=== PATIENT | male | born 1965 | race Caucasian/White ===

== ENCOUNTER 2017-12-03 15:56 | Emergency (ER) | payer OTHER ==
[~2017-12-03] VITALS: Ht 177.8 cm; Wt 115.0 kg
[2017-12-03 15:59] VITALS: Ht 177.8 cm; Wt 115.0 kg
[2017-12-03] MEDS ORDERED: NovoLIN-R INSULIN PER UNIT CHARGE IV STA (16:16)
[2017-12-03] MEDS ORDERED: SODIUM CHLORIDE 0.9% 1000ML 2,000 ML IV STA (16:16)
[2017-12-03 16:50] LABS: BASO % 0.3 %; BASO ABS # 0.02 K/uL (0-0.2); EOS ABS # 0.26 K/uL (0-0.5); HEMATOCRIT 43.8 % (42-52); HEMOGLOBIN 15.8 g/dL (14.0-18.0); IG# 0.03 K/uL (0.00-0.02); LYMPH % 28.9 %; LYMPH ABS # 1.87 K/uL (1.2-3.4); MEAN CELL VOLUME 88.5 fL (80-100); MEAN CORPUSCULAR HEMOGLOBIN 31.9 pg (25-34); MEAN CORPUSCULAR HGB CONC 36.1 g/dl (32-36); MEAN PLATELET VOLUME 10.9 fL (7.4-10.4); MONO % 6.2 %; NEUT % 60.1 %; NEUT ABS # 3.88 K/uL (1.4-6.5); PLATELET COUNT 184 K/uL (130-400); RED CELL DISTRIBUTION WIDTH SD 41.7 fL (36.4-46.3); WHITE BLOOD COUNT 6.46 K/uL (4.8-10.8)
[2017-12-03 17:22] LABS: ALBUMIN 3.5 gm/dl (3.4-5.0); CALCIUM 8.5 mg/dl (8.5-10.1); CREATININE 1.16 mg/dl (0.60-1.40); POTASSIUM 3.9 mmol/L (3.5-5.1); TOTAL PROTEIN 7.2 gm/dl (6.4-8.2)
--- NOTE | 2017-12-03 18:31 | Pharmacy Progress Note ---
ED Pharmacist Progress Note Date of Service: Dec 03, 2017. Asked to look into patient's insurance coverage for insulin by Sean Mccullough. Talked to patient who said he had tried to get prescriptions filled at a [facility] in [facility] and was unable to get his Lantus and Novolog filled. His last known lantus dose was 10 units daily- Patient reports that he has not had had lantus in the past 10 months. His novolog was is a sliding scale for hyperglycemia only that he takes 3 times a day. Patient does not know his scale and does not have it with him but says the maximum single dose is 45 units but he often does not take that much. The novolog required a prior auth that was denied. Called the [facility] and spoke with the pharmacist who told me that the novolog did need a prior auth and that the lantus was just being rejected. Called the patient's insurance company and discussed what was covered under formulary. Lantus is no longer covered but BASAGLAR and Levemir are both covered. The insurance counsel said that novolog was covered but had a quantity limit- patient should not have exceed the limit with dose. Humalog was also covered with the same quantity limit. Talked to patient and NOEL regarding switch to Basaglar which is 1:1 with Lantus and that maybe the novolog prescription needed a max daily dose written in script to go through correctly. At request of NOEL called patient's preferred pharmacy [facility] ([facility]) and gave test prescriptions. Prescription for Basaglar Kwikpen Inject 10 units subcutaneously daily Disp 1 box went through insurance without issue. Prescription for Novolog Flexpen Inject up to 45 units SQ three times daily as directed per sliding scale disp #1 box came up as non-formulary for them. They tried the same script with Humalog Kwikpen and it was able to go through. Discussed with NOEL who was okay with switching to humalog (1:1 w/ novolog). Gave verbal prescriptions to the pharmacist per Sean Dave PA-C. Discussed changes to basaglar and humalog with patient. Encouraged follow-up with outpatient provider as I expect that this basaglar dose is too low and patient will need to increase to get better control. Patient may also require coverage for food and not just correctional insulin if blood sugars continue to uncontrolled with the addition of basaglar. Patient had also asked about anxiety medication, patient had also tried to get paroxetine script filled. When I spoke with the [facility] pharmacist she said that the paxil prescription had gone through. Patient said he moved locations and was unable to pick it up. Let him know that he should be able to have it transferred to a different [facility] if script was current.
[2017-12-03] MEDS ORDERED: NovoLIN-R INSULIN PER UNIT CHARGE ONE ×2 (19:26→19:31)
[2017-12-03 19:38] VITALS: BP 155/85; PULSE 88; TEMP 36.8; O2SAT 96
--- NOTE | 2017-12-03 23:28 | EMERGENCY ROOM VISIT NOTE ---
History First contact with patient: 16:04 Chief Complaint: HYPERGLYCEMIA Stated Complaint: DIZZINESS, BLOOD SUGAR TO HIGH Nursing Triage Summary: hyperglycemia. History of Present Illness The patient is a 52 year old male who presents to the Emergency Room with complaints of elevated blood glucose, dizziness and headache. The patient reports a history of type 2 diabetes with insulin use. The patient reports that he has been unable to get his prescription insulin filled as his insurance/ pharmacy will not fill his medications. The patient reports that he has gone approximately 10 months without Lantus insulin. He reports that his blood glucose levels have been in the 400s. The patient reports that he is very busy with his work, often traveling for long periods of time. He has not been able to follow-up with his PCP for further management. He was seen at a hospital in [place] where they tried to get authorization for his prescriptions without success. The patient denies any recent illness, chest pain, shortness of breath or seizures. He denies hospitalization in the past for his diabetes. Review of Systems HEENT: Denies dizziness, visual problems, hearing loss, tinnitus. Denies difficulty swallowing or oral lesions. PULMONARY: Denies cough, shortness of breath, sputum production or hemoptysis. CARDIOVASCULAR: Denies chest pain, palpitations, dyspnea on exertion, orthopnea or peripheral edema. GASTROINTESTINAL: Denies diarrhea, constipation, nausea, vomiting, or abdominal pain. GENITOURINARY: Denies dysuria, frequency, urgency or nocturia. NEUROLOGIC: Denies history of epilepsy, CVA, TIA or chronic headaches. MUSCULOSKELETAL: Denies history of joint tenderness/swelling. SKIN: Denies rashes or lesions. PSYCHIATRIC: Denies history of depression or mental illness. ENDOCRINE: History of diabetes. Denies thyroid disorders. Past Medical/Surgical History Medical Problems: (1) Diabetes mellitus type 2, insulin dependent Surgical Problems: (1) No history of previous surgery Family History Unremarkable Social History Smoking Status: Never Smoker Alcohol Use: occasionally Marital Status: single, in relationship Housing Status: lives with significant other Occupation Status: employed Physical Exam Vital Signs Date Time Temp Pulse Resp B/P (MAP) Pulse Ox O2 Delivery O2 Flow Rate FiO2 12/03/17 19:38 36.8 88 16 155/85 96 12/03/17 15:59 36.8 96 16 158/83 95 Room Air Physical Exam CONSTITUTIONAL: Healthy and well nourished. Alert and oriented X 3 with positive affect. Patient does not appear in any acute distress. GCS 15. HEENT: Normocephalic, atraumatic. Pupils equal, round and reactive. No scleral icterus or conjunctival injection/pallor. OROPHARYNX: Mucous membranes are dry. NECK: Full active range of motion without discomfort. No JVD or carotid bruits. RESPIRATORY: Clear to auscultation bilaterally with no wheezing, crackles, rhonchi or stridor. CARDIOVASCULAR: Regular rate and rhythm with no murmurs, rubs or gallops. GASTROINTESTINAL: Bowel sounds present in all quadrants. Soft and nontender to palpation. MUSCULOSKELETAL: Full range of motion of all joints without discomfort. INTEGUMENTARY: No rash or other significant dermatologic conditions noted. HEMATOLOGIC: No ecchymosis or petechiae noted. NEUROLOGIC: Cranial nerves II-XII grossly intact. No focal neurologic deficits noted. Medical Decision & Procedures Laboratory Results 12/03/17 16:34 Red Blood Count 4.95, Mean Corpuscular Volume 88.5, Mean Corpuscular Hemoglobin 31.9, Mean Corpuscular Hemoglobin Concent 36.1, Mean Platelet Volume 10.9, Neutrophils (%) (Auto) 60.1, Lymphocytes (%) (Auto) 28.9, Monocytes (%) (Auto) 6.2, Eosinophils (%) (Auto) 4.0, Basophils (%) (Auto) 0.3, Neutrophils # (Auto) 3.88, Lymphocytes # (Auto) 1.87, Monocytes # (Auto) 0.40, Eosinophils # (Auto) 0.26, Basophils # (Auto) 0.02 12/03/17 16:34 Test 12/03/17 16:34 12/03/17 17:59 12/03/17 19:22 White Blood Count 6.46 K/uL (4.8-10.8) Red Blood Count 4.95 M/uL (4.7-6.1) Hemoglobin 15.8 g/dL (14.0-18.0) Hematocrit 43.8 % (42-52) Mean Corpuscular Volume 88.5 fL (80-100) Mean Corpuscular Hemoglobin 31.9 pg (25-34) Mean Corpuscular Hemoglobin Concent 36.1 g/dl (32-36) Platelet Count 184 K/uL (130-400) Mean Platelet Volume 10.9 fL (7.4-10.4) Neutrophils (%) (Auto) 60.1 % Lymphocytes (%) (Auto) 28.9 % Monocytes (%) (Auto) 6.2 % Eosinophils (%) (Auto) 4.0 % Basophils (%) (Auto) 0.3 % Neutrophils # (Auto) 3.88 K/uL (1.4-6.5) Lymphocytes # (Auto) 1.87 K/uL (1.2-3.4) Monocytes # (Auto) 0.40 K/uL (0.11-0.59) Eosinophils # (Auto) 0.26 K/uL (0-0.5) Basophils # (Auto) 0.02 K/uL (0-0.2) RDW Standard Deviation 41.7 fL (36.4-46.3) RDW Coefficient of Variation 13.0 % (11.5-14.5) Immature Granulocyte % (Auto) 0.5 % Immature Granulocyte # (Auto) 0.03 K/uL (0.00-0.02) Anion Gap 9.0 mmol/L (3-11) Est Creatinine Clear Calc Drug Dose 93.5 ml/min Estimated GFR () 82.9 Estimated GFR (Non- 71.5 BUN/Creatinine Ratio 11.3 (10-20) Calcium Level 8.5 mg/dl (8.5-10.1) Total Bilirubin 0.6 mg/dl (0.2-1) Direct Bilirubin mg/dl (0-0.2) Aspartate Amino Transf (AST/SGOT) 22 U/L (15-37) Alanine Aminotransferase (ALT/SGPT) 36 U/L (12-78) Alkaline Phosphatase 91 U/L (45-117) Total Protein 7.2 gm/dl (6.4-8.2) Albumin 3.5 gm/dl (3.4-5.0) Lipase 140 U/L (73-393) Beta-Hydroxybutyric Acid 1.26 mg/dL (0.2-2.81) Bedside Glucose 307 mg/dl (70-99) The above labs were reviewed. Initial bedside glucose was 457. His serum glucose was 484 with mild hyponatremia. Otherwise remaining labs are normal, including a beta hydroxybutyrate acid level. After he was administered regular insulin 10 units IV. His bedside glucose was 229 approximately 45 minutes later. Repeat bedside glucose at 2 hours was 307. Medications Administered Medications (Trade) Dose Ordered Sig/Lilia Route Start Time Stop Time Status Last Admin Dose Admin Sodium Chloride 2,000 ml @ 999 mls/hr Q2H1M STAT IV 12/03/17 16:16 12/03/17 18:16 DC 12/03/17 16:37 999 MLS/HR Insulin Human Regular (novoLIN-R U-100 PER UNIT) 10 units NOW STAT IV 12/03/17 16:16 12/03/17 16:19 DC 12/03/17 16:39 10 UNITS Insulin Human Regular (novoLIN-R U-100 PER UNIT) 1 units STK-MED ONCE .ROUTE 12/03/17 19:26 12/03/17 19:27 DC 12/03/17 19:36 1 UNITS ED Course Patient history and physical exam were performed. Nurse's notes were reviewed. Vital signs were reviewed and normal. IV access was established, and labs were drawn. The patient was administered a normal saline 2 L bolus. Labs were reviewed to show an elevated glucose on initial presentation, with a description of lab results in the above Laboratory Results section. The patient was administered regular insulin 10 units IV, and within an hour had significant reduction of his levels. The patient reported feeling much better. Remaining labs were ordered and reviewed without any significant changes, or laboratory studies suggesting DKA. I requested that our ED pharmacist further discuss the patient's prescription insulin issues, and try to contact his insurance provider and pharmacy to determine why he is unable to get his prescriptions of Lantus and NovoLog filled. It was determined that Lantus was no longer covered under his policy, but BASAGLAR and Levemir are both covered. The special agent group insurance said that Novolog was covered but had a quantity limit. Humalog was also covered with the same quantity limit. The pharmacist called the [facility]'s preferred pharmacy ([facility] They were able to fill a prescription for Basaglar Kwikpen Inject 10 units subcutaneously daily, and Humalog Kwikpen. Further details are provided in pharmacist progress notes. The patient was encouraged to follow-up with his PCP for further dosing control since the patient has not been taking his Lantus insulin now for the past 10 months. He will likely require a change in his dosing. The patient was happy with plan of care, voiced understanding of all discharge instructions, and denied any significant symptoms at the time of discharge. Medical Decision Medication Reconcilliation Current Medication List: was personally reviewed by me Blood Pressure Screening Patient's blood pressure: Elevated blood pressure Blood pressure disposition: Did not require urgent referral Impression Primary Impression: Hyperglycemia due to type 2 diabetes mellitus Departure Information Dispostion Home / Self-Care Condition FAIR Forms WORK / SCHOOL INSTRUCTIONS, HOME CARE DOCUMENTATION FORM, IMPORTANT VISIT INFORMATION Patient Instructions My [facility] Additional Instructions Future prescriptions for insulin filled at [facility] in [place]. Follow-up with your family doctor to discuss further diabetes management. Remain well-hydrated. FOR WORK: Please excuse from work for the next 4 days - may return to work on 12/08/17. Problem Qualifiers Primary Impression: Hyperglycemia due to type 2 diabetes mellitus Diabetes mellitus keno terminal operator insulin use: with keno terminal operator use Qualified Codes: E11.65 - Type 2 diabetes mellitus with hyperglycemia; Z79.4 - intermediate accountant ( current) use of insulin
== END 2017-12-03 19:38 | disposition home or self-care (01) ==
LOC: C.EDB 15:58 → C.EDA 19:38
DX: E11.65 Type 2 diabetes mellitus with hyperglycemia (principal); R42 Dizziness and giddiness; R51 Headache; Z79.4 Long term (current) use of insulin